=== PATIENT | female | born 2000 | race African-American/Black ===

== ENCOUNTER 2019-09-30 13:38 | Emergency (ER) | payer OTHER ==
[~2019-09-30] VITALS: Ht 165.1 cm; Wt 45.4 kg
--- NOTE | ~2019-09-30 | EMS ---
[facility] [address] [place] [address] EMS Patient Care Report Name: ASHLEY NAIK Room #: DEP OMER Perez#: [id number] Admission: 09/30/19 Attend Phys: Discharge: 09/30/19 Date of : [birth year] Report #: [id number] THIS REPORT FOR: //name// Report Transmitted: 10/01/2019 07:29 EMS Care Summary [place], [place]/[facility] Incident [id number] @ 09/30/2019 13:14 Incident Location [address] [place] [id number] Patient ASHLEY NAIK Female, 19 Years 2000 Patient Address [address] [place] [id number] Patient History Bronchitis Chronic, Patient Allergies No known allergies, Patient Medications None Reported, Chief Complaint Moments of incorrect sentences Disposition Transported No Lights/[place] Reason Stroke/CVA Transported To [facility] Narrative pt states that when pt woke up she started having problems putting sentences together. pt denies any previous strokes. pt stets that pt has not been able to put sentences together sometime while trying to. pt denies any recent cough. pt denies any fever. pt is very worried and when she gets worried her symptoms of [facility] [address] [place] [address] EMS Patient Care Report Name: ASHLEY NAIK Room #: DEP ER Chris#: [id number] Admission: 09/30/19 Attend Phys: Discharge: 09/30/19 Date of : [birth year] Report #: [id number] not being able to put sentences together come on stronger. pt has no other complaints. pt was found sitting in pt's garage waiting for pt. pt is able to speak in full and complete sentences. but occasional especially when stressed pt has a hard time putting sentences. together. pt is able to stand and pivot to get onto ems cot. pt has no other obvious abnormalities. Initial Vitals @13:19P: 78,R: 18,Pain: 0/10,GCS: 14,SpO2: 99, @13:22P: 78,R: 18,Pain: 0/10,GCS: 15,SpO2: 100,NE Suspected: false Assessments @13:19MENTAL:Confused,Person Oriented,Place Oriented,Time Oriented,Event Oriented,SKIN:HEENT:Eyes: Left Pupil: 3-mm,Eyes: Right Pupil: 3-mm,Head/Face: No Abnormalities,Neck/Airway: No Abnormalities,LUNG SOUNDS:General: No Abnormalities,ABDOMEN:General: No Abnormalities,PELVIS//GI:EXTREMITIES:Capillary Refill: Right Upper: < 2 Sec,Left Arm: No Abnormalities,Right Arm: No Abnormalities,Left Leg: No Abnormalities,Right Leg: No Abnormalities,PULSE:Radial: 2+ Normal,NEURO:No Abnormalities, Impression Behavioral/psychiatric episode Timeline 13:12,Call Received 13:12,Dispatch Notified 13:14,Dispatched 13:14,En Route 13:17,On Scene 13:18,At Patient 13:19,BP: / M,PULSE: 78,RR: 18 R,SPO2: 99 Ox,ETCO2: ,BG: ,PAIN: 0,GCS: 14, 13:22,BP: / M,PULSE: 78,RR: 18 R,SPO2: 100 Ox,ETCO2: ,BG: ,PAIN: 0,GCS: 15, 13:25,Depart Scene 13:33,At Destination 13:55,Call Closed Disclaimer v1.1 Copyright 2020 [employer] This EMS Care Summary contains data elements from the applicable legal record (which may be displayed differently). It is designed to provide pertinent information for the following purposes: continuity of care, clinical quality, and state data reporting. The complete legal record is available to ED staff and administrators of the receiving hospital in [employer] Patient Tracker. All data [address] [address] EMS Patient Care Report Name: ASHLEY NAIK Room #: CRISTEL Perez#: [id number] Admission: 09/30/19 Attend Phys: Discharge: 09/30/19 Date of : [birth year] Report #: [id number] is provided "as is."
[2019-09-30 13:56] LABS: ABSOLUTE NEUTROPHILS 11.3 thou/uL (1.4-8.2); BASOPHILS 0.6 % (0.0-2.0); EOSINOPHILS 0.6 % (0.0-3.0); HEMATOCRIT 48.6 % (37.0-47.0); HEMOGLOBIN 16.3 gm/dL (12.0-15.0); LYMPHOCYTES 17.6 % (24.0-44.0); MCH 30.2 pg (26.0-34.0); MCHC 33.5 g/dL (28.0-37.0); MCV 90.2 fL (80.0-100.0); MONOCYTES 7.2 % (1.0-8.0); PLATELET COUNT 148 thou/uL (150-400); RBC 5.39 mil/uL (4.20-5.00); RDW 14.2 % (10.5-14.5); WBC 15.3 thou/uL (4.0-11.0)
[2019-09-30 14:19] LABS: URINE BILIRUBIN NEGATIVE (Negative); URINE BLOOD NEGATIVE (Negative); URINE CLARITY CLEAR; URINE COLOR YELLOW; URINE GLUCOSE-RANDOM* NEGATIVE (Negative); URINE KETONES NEGATIVE (Negative); URINE LEUKOCYTES-REFLEX NEGATIVE (Negative); URINE NITRITE-REFLEX NEGATIVE (Negative); URINE PROTEIN (DIPSTICK) NEGATIVE (Negative); URINE SPECIFIC GRAVITY <= 1.005 (1.005-1.035); URINE UROBILINOGEN 0.2 E.U./dl (0.2-1.0)
[2019-09-30 14:21] LABS: CALCIUM 9.1 mg/dL (8.5-10.1); CREATININE 1.1 mg/dL (0.6-1.0); POTASSIUM 3.7 mmol/L (3.5-5.1)
[2019-09-30 14:25] LABS: AMP/METHAMP Negative (Negative); BARBITURATES Negative (Negative); BENZODIAZEPINES Negative (Negative); COCAINE Negative (Negative); METHADONE Negative (Negative); OPIATES Negative (Negative); PCP Negative (Negative)
[2019-09-30 14:26] LABS: ALBUMIN 4.5 g/dL (3.4-5.0); TOTAL BILIRUBIN 0.5 mg/dL (<0.1-1.0); TOTAL PROTEIN 7.7 g/dL (6.4-8.2)
[2019-09-30 16:28] VITALS: BP 108/61
== END 2019-09-30 16:30 | disposition home or self-care (01) ==
LOC: ER 13:38
PROVIDERS: Physician Assistant
DX: R47.01 Aphasia (principal); F41.9 Anxiety disorder, unspecified; F19.10 Other psychoactive substance abuse, uncomplicated; R41.82 Altered mental status, unspecified; F32.9 Major depressive disorder, single episode, unspecified